=== PATIENT | male | born 1965 | race Caucasian/White ===

== ENCOUNTER 2019-08-08 12:18 | Inpatient (IN) | payer BC ==
[~2019-08-08] VITALS: Ht 188 cm; Wt 98.6 kg
[2019-08-08 12:59] LABS: BASOPHILS # (AUTO) 0.1 X10'3 (0-0.2); BASOPHILS % (AUTO) 0.4 % (0-1); EOSINOPHILS % (AUTO) 0.2 % (0-6); HEMATOCRIT 42.6 % (42.0-52.0); HEMOGLOBIN 14.6 g/dl (14.0-17.9); LYMPHOCYTES # (AUTO) 0.6 X10'3 (1.1-4.8); LYMPHOCYTES % (AUTO) 4.2 % (21-51); MEAN CORPUSCULAR HEMOGLOBIN 31.1 PG (27.0-31.0); MEAN CORPUSCULAR HGB CONC 34.2 g/dL (33.0-36.5); MEAN PLATELET VOLUME 7.5 FL (7.4-10.4); MONOCYTES # (AUTO) 1.1 X10'3 (0-0.9); MONOCYTES % (AUTO) 7.5 % (2-12); NEUTROPHILS # (AUTO) 13.1 X10'3 (1.8-7.7); NEUTROPHILS % (AUTO) 87.7 % (42-75); PLATELET COUNT 262 X10'3 (140-440); RED BLOOD COUNT 4.68 X10'6 (4.70-6.10); RED CELL DISTRIBUTION WIDTH 13.4 % (11.5-14.5)
[2019-08-08 13:25] LABS: ALANINE AMINOTRANSFERASE 32 U/L (12-78); ALBUMIN 3.7 G/DL (3.4-5.0); ALBUMIN/GLOBULIN RATIO 0.9 (1.1-1.5); ALKALINE PHOSPHATASE 90 IU/L (46-116); ANION GAP 15 (8-16); ASPARTATE AMINO TRANSFERASE 15 U/L (10-37); BILIRUBIN,TOTAL 1.5 MG/DL (0.1-1.0); BLOOD UREA NITROGEN 13 MG/DL (7-18); BUN/CREATININE RATIO 16.3 (5.4-32.0); CHLORIDE 102 MMOL/L (99-107); GLUCOSE 224 MG/DL (70-104); LIPASE < 50 U/L (73-393); POTASSIUM 4.1 MMOL/L (3.5-5.1); SODIUM 138 MMOL/L (135-145); TOTAL CARBON DIOXIDE 21.1 MMOL/L (24-32); TOTAL PROTEIN 7.9 G/DL (6.4-8.2); eGFR > 90 ML/MIN
[2019-08-08] MEDS ORDERED: vancomycin/NS 1 GM ADD-VANTAGE 250 ML IV ONE (14:00)
[2019-08-08] MEDS ORDERED: piperacillin/tazo 3.375gm/50ml 50 ML IV ONE (14:00)
[2019-08-08] MEDS ORDERED: VANCOMYCIN 1gm/H2O 200ml PB 200 ML IV ONE (14:05)
[2019-08-08] MEDS ORDERED: INSU100V9 SQ (14:16)
[2019-08-08] MEDS ORDERED: dextrose ORAL solution 15 GM/59 ML bottle PO PRN ×2 (14:25)
[2019-08-08] MEDS ORDERED: MESSAGE TO PHARMACY PO ONE (14:25)
[2019-08-08] MEDS ORDERED: ondansetron/PF 4mg/2ml inj IV PRN (14:25)
[2019-08-08] MEDS ORDERED: magnesium hydroxide 30ml (MOM) UD suspension PO PRN (14:25)
[2019-08-08] MEDS ORDERED: dextrose 50%-water 50ml dispensing syringe IV PRN ×2 (14:25)
[2019-08-08] MEDS ORDERED: potassium Cl 20 mEq SR tablet PO PRN ×2 (14:25)
[2019-08-08] MEDS ORDERED: glucagon, human recombinant 1mg kit SUBCUT PRN (14:25)
[2019-08-08] MEDS ORDERED: magnesium 4gm in 100ml NS 100 ML IV PRN (14:25)
[2019-08-08] MEDS ORDERED: magnesium 2GM in 50ml NS 50 ML IV PRN (14:25)
[2019-08-08] MEDS ORDERED: potassium CL 10mEq/100ml bag 100 ML IV PRN ×2 (14:25)
[2019-08-08] MEDS ORDERED: MULT1TAB74 PO (14:35)
[2019-08-08] MEDS ORDERED: ASPI-611 PO (14:35)
[2019-08-08] MEDS ORDERED: METF-438 PO (14:35)
[2019-08-08] MEDS ORDERED: EMPA10TA PO (14:35)
[2019-08-08] MEDS ORDERED: EMPA25TA PO (14:52)
[2019-08-08] MEDS ORDERED: METF500T20 PO (14:52)
[2019-08-08] MEDS ORDERED: TERB250T4 PO (14:56)
[2019-08-08] MEDS ORDERED: GABA-532 PO (14:56)
[2019-08-08] MEDS: normal saline 1000ml 1,000 ML IV SCH ×4 (15:07→19:24)
--- NOTE | 2019-08-08 15:16 | NUR ---
Attempted to phone report, receiving RN on lunch, Charge nurse unavailable to take report.
--- NOTE | 2019-08-08 15:30 | NUR ---
Patient in room [facility]. I have received report from ER Nurse and had the opportunity to ask questions and assume patient care.
[2019-08-08 16:00] VITALS: BP 160/82
[2019-08-08] MEDS: gabapentin 300mg capsule PO SCH ×2 (17:42→20:59)
[2019-08-08] MEDS: cefepime 1GM in D5W 50mL 50 ML IV SCH ×2 (17:50→23:43)
[2019-08-08] MEDS: mag hydrox/Alum hydrox/simeth 30ml oral suspension PO PRN (17:50)
--- NOTE | 2019-08-08 17:58 | NUR ---
Problems reprioritized. Patient report given, questions answered & plan of care reviewed with Lis GOMEZ.
[2019-08-08 18:00] VITALS: BP 146/70
--- NOTE | 2019-08-08 18:42 | NUR ---
Gave report to Yoandy GOMEZ.
--- NOTE | 2019-08-08 18:55 | NUR ---
Patient in room [facility]. I have received report from JASON Galicia and had the opportunity to ask questions and assume patient care.
[2019-08-08] MEDS: K and/or MAG REPLACEMENT MC SCH (19:03)
[2019-08-08 19:11] LABS: CLARITY,URINE CLEAR (Clear); COLOR,URINE YELLOW (Yellow); GLUCOSE, URINE 500 mg/dl (Neg); KETONES,URINE >=80 mg/dl (Neg); LEUKOCYTE ESTERASE ,URINE NEGATIVE (Neg); NITRITES, URINE NEGATIVE (Neg); OCCULT BLOOD,URINE TRACE-INTACT (Neg); PROTEIN,URINE 30 mg/dl (Neg); UROBILINOGEN,URINE 0.2 E.U/dL (0.2-1.0)
[2019-08-08 19:15] LABS: UA COLLECTION TYPE CLN CATCH MIDSTREAM
[2019-08-08 19:16] LABS: BACTERIA,URINE NONE SEEN /HPF (Neg); RBC,URINE 0-2 /HPF (0-2); SQUAMOUS EPITHELIAL CELL,UR FEW /LPF (FEW); WBC,URINE NONE SEEN /HPF (0-4)
[2019-08-08] MEDS: VANCOmycin 1250MG/NS 250ml Bag 250 ML IV SCH (19:24)
[2019-08-08] MEDS: acetaminophen 325mg tablet PO PRN (19:40)
[2019-08-08] MEDS: insulin glargine (Lantus) pen - multi-dose SQ SCH (21:00)
[2019-08-09] VITALS: BP 110/52
[2019-08-09 05:25] LABS: BASOPHILS % (AUTO) 0.4 % (0-1); EOSINOPHILS # (AUTO) 0.1 X10'3 (0-0.9); EOSINOPHILS % (AUTO) 0.5 % (0-6); HEMATOCRIT 38.8 % (42.0-52.0); HEMOGLOBIN 13.1 g/dl (14.0-17.9); LYMPHOCYTES # (AUTO) 1.3 X10'3 (1.1-4.8); LYMPHOCYTES % (AUTO) 10.7 % (21-51); MEAN CORPUSCULAR HEMOGLOBIN 30.9 PG (27.0-31.0); MEAN CORPUSCULAR HGB CONC 33.7 g/dL (33.0-36.5); MEAN CORPUSCULAR VOLUME 91.7 FL (78-98); MEAN PLATELET VOLUME 7.4 FL (7.4-10.4); MONOCYTES # (AUTO) 0.9 X10'3 (0-0.9); MONOCYTES % (AUTO) 7.6 % (2-12); NEUTROPHILS # (AUTO) 9.8 X10'3 (1.8-7.7); NEUTROPHILS % (AUTO) 80.8 % (42-75); PLATELET COUNT 253 X10'3 (140-440); RED BLOOD COUNT 4.23 X10'6 (4.70-6.10); WHITE BLOOD COUNT 12.2 X10'3 (4.5-11.0)
[2019-08-09 06:07] LABS: ALANINE AMINOTRANSFERASE 25 U/L (12-78); ALBUMIN/GLOBULIN RATIO 0.8 (1.1-1.5); ALKALINE PHOSPHATASE 80 IU/L (46-116); ANION GAP 17 (8-16); ASPARTATE AMINO TRANSFERASE 13 U/L (10-37); BILIRUBIN,TOTAL 1.2 MG/DL (0.1-1.0); BLOOD UREA NITROGEN 9 MG/DL (7-18); CALCIUM 8.2 MG/DL (8.5-10.1); CHLORIDE 105 MMOL/L (99-107); CREATININE 0.75 MG/DL (0.60-1.10); GLUCOSE 90 MG/DL (70-104); SODIUM 137 MMOL/L (135-145); TOTAL CARBON DIOXIDE 15.1 MMOL/L (24-32); TOTAL PROTEIN 6.9 G/DL (6.4-8.2); eGFR > 90 ML/MIN
--- NOTE | 2019-08-09 06:40 | NUR ---
Problems reprioritized. Patient report given, questions answered & plan of care reviewed with JASON Bateman.
--- NOTE | 2019-08-09 06:41 | NUR ---
Patient in room [facility]. I have received report from JASON Pitt and had the opportunity to ask questions and assume patient care.
[2019-08-09] MEDS: K and/or MAG REPLACEMENT MC SCH ×2 (07:14→19:19)
[2019-08-09] MEDS: mag hydrox/Alum hydrox/simeth 30ml oral suspension PO PRN ×3 (07:22→21:55)
[2019-08-09] MEDS: gabapentin 300mg capsule PO SCH ×4 (07:25→21:53)
[2019-08-09] MEDS: multivitamins, therapeutics tablet PO SCH (07:25)
[2019-08-09] MEDS: enoxaparin 40mg/0.4ml syringe SQ SCH (07:25)
[2019-08-09] MEDS: normal saline 1000ml 1,000 ML IV SCH ×2 (07:25→19:25)
[2019-08-09] MEDS: aspirin 81mg tablet.DR PO SCH (07:25)
[2019-08-09] MEDS: VANCOmycin 1250MG/NS 250ml Bag 250 ML IV SCH ×2 (07:39→19:24)
[2019-08-09 07:44] VITALS: BP 147/86
[2019-08-09] MEDS ORDERED: gadobutrol 10mmol/10ml inj. IV ONE (09:18)
--- NOTE | 2019-08-09 09:30 | NUR ---
Patient to MRI via wheelchair with x2 staff.
[2019-08-09 11:00] VITALS: BP 153/76
[2019-08-09] MEDS ORDERED: levoFLOXACIN 750MG TABLET PO SCH (11:00)
[2019-08-09] MEDS: cefepime 1GM in D5W 50mL 50 ML IV SCH ×2 (11:18→16:35)
[2019-08-09] MEDS: aspirin/acetaminophen/caffeine tablet PO PRN (13:56)
--- NOTE | 2019-08-09 16:43 | NUR ---
Problems reprioritized. Patient report given, questions answered & plan of care reviewed with JASON Deshpande.
--- NOTE | 2019-08-09 16:47 | NUR ---
Patient in room [facility]. I have received report from JASON MAO and had the opportunity to ask questions and assume patient care.
--- NOTE | 2019-08-09 17:21 | NUR ---
I agree with previous RN physical assessment.
[2019-08-09 18:00] VITALS: BP 150/77
--- NOTE | 2019-08-09 18:05 | NUR ---
Patient in room [facility]. I have received report from JASON Deshpande and had the opportunity to ask questions and assume patient care.
--- NOTE | 2019-08-09 18:13 | NUR ---
Problems reprioritized. Patient report given, questions answered & plan of care reviewed with JASON Cervantes.
[2019-08-09 18:15] VITALS: BP 107/56
[2019-08-09] MEDS: lactobacillus rhamnosus 10,000 MMU CELLS/CAPSULE PO SCH (19:25)
[2019-08-09] MEDS: insulin glargine (Lantus) pen - multi-dose SQ SCH (21:00)
[2019-08-10] VITALS: BP 122/62
[2019-08-10] MEDS: mag hydrox/Alum hydrox/simeth 30ml oral suspension PO PRN ×2 (03:25→07:59)
[2019-08-10] MEDS: normal saline 1000ml 1,000 ML IV SCH ×2 (05:33→16:39)
--- NOTE | 2019-08-10 06:24 | NUR ---
Problems reprioritized. Patient report given, questions answered & plan of care reviewed with JASON Green.
[2019-08-10] MEDS ORDERED: VANCOMYCIN LEVEL IV ONE (06:30)
[2019-08-10 07:20] VITALS: BP 164/91
[2019-08-10] MEDS: aspirin 81mg tablet.DR PO SCH (07:59)
[2019-08-10] MEDS: gabapentin 300mg capsule PO SCH ×4 (07:59→21:31)
[2019-08-10] MEDS: multivitamins, therapeutics tablet PO SCH (07:59)
[2019-08-10] MEDS: enoxaparin 40mg/0.4ml syringe SQ SCH (07:59)
[2019-08-10] MEDS: lactobacillus rhamnosus 10,000 MMU CELLS/CAPSULE PO SCH ×2 (07:59→21:30)
[2019-08-10] MEDS: K and/or MAG REPLACEMENT MC SCH ×2 (08:00→19:21)
[2019-08-10] MEDS: VANCOmycin 1250MG/NS 250ml Bag 250 ML IV SCH ×2 (08:03→16:38)
[2019-08-10 08:12] LABS: BASOPHILS # (AUTO) 0.1 X10'3 (0-0.2); EOSINOPHILS # (AUTO) 0.1 X10'3 (0-0.9); EOSINOPHILS % (AUTO) 1.1 % (0-6); HEMATOCRIT 42.5 % (42.0-52.0); HEMOGLOBIN 14.6 g/dl (14.0-17.9); LYMPHOCYTES # (AUTO) 1.1 X10'3 (1.1-4.8); LYMPHOCYTES % (AUTO) 10.9 % (21-51); MEAN CORPUSCULAR HEMOGLOBIN 31.1 PG (27.0-31.0); MEAN CORPUSCULAR HGB CONC 34.3 g/dL (33.0-36.5); MEAN CORPUSCULAR VOLUME 90.5 FL (78-98); MEAN PLATELET VOLUME 7.9 FL (7.4-10.4); MONOCYTES # (AUTO) 0.8 X10'3 (0-0.9); MONOCYTES % (AUTO) 7.5 % (2-12); NEUTROPHILS % (AUTO) 79.5 % (42-75); PLATELET COUNT 319 X10'3 (140-440); RED BLOOD COUNT 4.69 X10'6 (4.70-6.10); RED CELL DISTRIBUTION WIDTH 13.2 % (11.5-14.5); WHITE BLOOD COUNT 10.1 X10'3 (4.5-11.0)
[2019-08-10 08:21] LABS: ALANINE AMINOTRANSFERASE 24 U/L (12-78); ALBUMIN 3.1 G/DL (3.4-5.0); ALBUMIN/GLOBULIN RATIO 0.7 (1.1-1.5); ALKALINE PHOSPHATASE 90 IU/L (46-116); ANION GAP 12 (8-16); ASPARTATE AMINO TRANSFERASE 14 U/L (10-37); BILIRUBIN,TOTAL 0.8 MG/DL (0.1-1.0); BLOOD UREA NITROGEN 11 MG/DL (7-18); BUN/CREATININE RATIO 15.3 (5.4-32.0); CALCIUM 8.8 MG/DL (8.5-10.1); CHLORIDE 106 MMOL/L (99-107); CREATININE 0.72 MG/DL (0.60-1.10); GLUCOSE 137 MG/DL (70-104); MAGNESIUM 2.1 MG/DL (1.5-2.4); POTASSIUM 4.1 MMOL/L (3.5-5.1); SODIUM 135 MMOL/L (135-145); TOTAL CARBON DIOXIDE 16.7 MMOL/L (24-32); TOTAL PROTEIN 7.4 G/DL (6.4-8.2); eGFR > 90 ML/MIN
[2019-08-10] MEDS: ceFAZolin 1GM/D5W- ADD-VANTAGE 50 ML IV SCH ×4 (09:42→23:31)
[2019-08-10 11:45] VITALS: BP 138/70
[2019-08-10] MEDS ORDERED: metroNIDAZOLE 500mg tablet PO ONE (12:35)
[2019-08-10] MEDS: aspirin/acetaminophen/caffeine tablet PO PRN (13:13)
[2019-08-10] MEDS: insulin Lispro (HumaLOG) vial - multi-dose SQ SCH ×2 (13:23→19:01)
--- NOTE | 2019-08-10 18:17 | NUR ---
Received report from JASON Green. Patient is awake and alert on room air, in no apparent distress. Visitors at bedside. Call light and items of frequent use within reach. Will continue to monitor.
--- NOTE | 2019-08-10 18:29 | NUR ---
Problems reprioritized. Patient report given, questions answered & plan of care reviewed with JASON Thompson.
[2019-08-10 19:00] VITALS: BP 144/76
[2019-08-10] MEDS: metroNIDAZOLE 500mg tablet PO SCH (21:30)
[2019-08-10] MEDS: insulin glargine (Lantus) pen - multi-dose SQ SCH (21:37)
[2019-08-11] VITALS: BP 108/54
[2019-08-11] MEDS: VANCOmycin 1250MG/NS 250ml Bag 250 ML IV SCH ×2 (00:53→08:41)
[2019-08-11] MEDS: aspirin/acetaminophen/caffeine tablet PO PRN (04:13)
[2019-08-11] MEDS: normal saline 1000ml 1,000 ML IV SCH ×3 (04:14→17:22)
--- NOTE | 2019-08-11 06:09 | NUR ---
Problems reprioritized. Patient report given, questions answered & plan of care reviewed with JASON Green.
[2019-08-11 07:10] VITALS: BP 144/69
[2019-08-11] MEDS ORDERED: VANCOMYCIN LEVEL IV ONE (07:30)
[2019-08-11] MEDS: gabapentin 300mg capsule PO SCH ×4 (07:47→21:17)
[2019-08-11] MEDS: multivitamins, therapeutics tablet PO SCH (07:47)
[2019-08-11] MEDS: metroNIDAZOLE 500mg tablet PO SCH ×2 (07:48→19:39)
[2019-08-11] MEDS: enoxaparin 40mg/0.4ml syringe SQ SCH (07:48)
[2019-08-11] MEDS: ceFAZolin 1GM/D5W- ADD-VANTAGE 50 ML IV SCH ×3 (07:48→23:56)
[2019-08-11] MEDS: aspirin 81mg tablet.DR PO SCH (07:48)
[2019-08-11] MEDS: lactobacillus rhamnosus 10,000 MMU CELLS/CAPSULE PO SCH ×2 (07:48→19:39)
[2019-08-11] MEDS: K and/or MAG REPLACEMENT MC SCH ×2 (07:52→20:00)
[2019-08-11] MEDS: insulin Lispro (HumaLOG) vial - multi-dose SQ SCH ×3 (08:45→19:01)
[2019-08-11 08:56] LABS: BASOPHILS # (AUTO) 0.1 X10'3 (0-0.2); BASOPHILS % (AUTO) 0.8 % (0-1); EOSINOPHILS # (AUTO) 0.2 X10'3 (0-0.9); EOSINOPHILS % (AUTO) 2.1 % (0-6); HEMATOCRIT 44.1 % (42.0-52.0); HEMOGLOBIN 15.2 g/dl (14.0-17.9); LYMPHOCYTES # (AUTO) 1.1 X10'3 (1.1-4.8); LYMPHOCYTES % (AUTO) 12.7 % (21-51); MEAN CORPUSCULAR HEMOGLOBIN 31.1 PG (27.0-31.0); MEAN CORPUSCULAR HGB CONC 34.4 g/dL (33.0-36.5); MEAN CORPUSCULAR VOLUME 90.3 FL (78-98); MEAN PLATELET VOLUME 7.6 FL (7.4-10.4); MONOCYTES # (AUTO) 0.6 X10'3 (0-0.9); MONOCYTES % (AUTO) 7.6 % (2-12); NEUTROPHILS # (AUTO) 6.5 X10'3 (1.8-7.7); NEUTROPHILS % (AUTO) 76.8 % (42-75); PLATELET COUNT 365 X10'3 (140-440); RED BLOOD COUNT 4.88 X10'6 (4.70-6.10); RED CELL DISTRIBUTION WIDTH 13.2 % (11.5-14.5); WHITE BLOOD COUNT 8.4 X10'3 (4.5-11.0)
[2019-08-11 09:04] LABS: ALANINE AMINOTRANSFERASE 28 U/L (12-78); ALBUMIN 3.3 G/DL (3.4-5.0); ALBUMIN/GLOBULIN RATIO 0.7 (1.1-1.5); ALKALINE PHOSPHATASE 99 IU/L (46-116); ANION GAP 11 (8-16); ASPARTATE AMINO TRANSFERASE 17 U/L (10-37); BILIRUBIN,TOTAL 0.6 MG/DL (0.1-1.0); BLOOD UREA NITROGEN 10 MG/DL (7-18); BUN/CREATININE RATIO 16.4 (5.4-32.0); CHLORIDE 105 MMOL/L (99-107); CREATININE 0.61 MG/DL (0.60-1.10); GLUCOSE 194 MG/DL (70-104); POTASSIUM 3.8 MMOL/L (3.5-5.1); SODIUM 138 MMOL/L (135-145); TOTAL CARBON DIOXIDE 22.2 MMOL/L (24-32); TOTAL PROTEIN 7.8 G/DL (6.4-8.2); eGFR > 90 ML/MIN
[2019-08-11 09:07] LABS: MAGNESIUM 1.9 MG/DL (1.5-2.4); VANCOMYCIN,TROUGH 11.5 UG/ML (6.0-14.0)
[2019-08-11 12:09] VITALS: BP 159/85
[2019-08-11 20:00] VITALS: BP 166/88
[2019-08-11] MEDS: insulin glargine (Lantus) pen - multi-dose SQ SCH (21:16)
[2019-08-12] VITALS: BP 155/82
[2019-08-12] MEDS: acetaminophen 325mg tablet PO PRN (01:11)
--- NOTE | 2019-08-12 02:30 | NUR ---
Patient in room [facility]. I have received report from Ninoska GOMEZ and had the opportunity to ask questions and assume patient care.
[2019-08-12] MEDS: normal saline 1000ml 1,000 ML IV SCH (05:30)
--- NOTE | 2019-08-12 06:42 | NUR ---
Patient in room [facility]. I have received report from Marcela RN and Adri RN and had the opportunity to ask questions and assume patient care.
--- NOTE | 2019-08-12 06:52 | NUR ---
Problems reprioritized. Patient report given, questions answered & plan of care reviewed with Delphine GOMEZ.
--- NOTE | 2019-08-12 06:53 | NUR ---
Problems reprioritized. Patient report given, questions answered & plan of care reviewed with JASON Akers.
--- NOTE | 2019-08-12 06:53 | NUR ---
RFA IV infiltrated, pt arm edemetous. Removed IV, restarted new on LFA
[2019-08-12 07:00] VITALS: BP 148/83
[2019-08-12] MEDS: multivitamins, therapeutics tablet PO SCH (07:47)
[2019-08-12] MEDS: gabapentin 300mg capsule PO SCH (07:47)
[2019-08-12] MEDS: metroNIDAZOLE 500mg tablet PO SCH (07:47)
[2019-08-12] MEDS: ceFAZolin 1GM/D5W- ADD-VANTAGE 50 ML IV SCH (07:47)
[2019-08-12] MEDS: aspirin 81mg tablet.DR PO SCH (07:47)
[2019-08-12] MEDS: lactobacillus rhamnosus 10,000 MMU CELLS/CAPSULE PO SCH (07:47)
[2019-08-12] MEDS: enoxaparin 40mg/0.4ml syringe SQ SCH (07:48)
[2019-08-12] MEDS: insulin Lispro (HumaLOG) vial - multi-dose SQ SCH (08:36)
[2019-08-12] MEDS ORDERED: LIDOcaine 4% (40 mg/ml) topical solution 50ml TP ONE (09:25)
[2019-08-12] MEDS ORDERED: LEVO500T2 PO (10:21)
[2019-08-12 11:00] VITALS: BP 163/91
[2019-08-12] MEDS ORDERED: VANCOMYCIN LEVEL IV ONE (15:30)
--- NOTE | 2019-08-12 15:46 | NUR ---
PATIENT STABLE AND APPROPRIATE FOR DISCHARGE, IV TAKEN OUT, EDUCATION GIVEN, ALL BELONGINGS SENT WITH PATIENT, MEDS E-SCRIPTED TO PREFERRED PHARMACY, PATIENT TAKEN TO LOBBY IN WHEEL CHAIR TO AN AWAITING CAR WHERE WILL TAKE HOME
== END 2019-08-12 12:47 | disposition home or self-care (01) | DRG 854 ==
LOC: ER 12:20 → ED HOLD 14:23 → SUR 3N 15:40
PROVIDERS: ADMIT Family Medicine; ATTEND Family Medicine
PROC: 0JBR0ZZ Excision of Left Foot Subcutaneous Tissue and Fascia, Open Approach (ICD-10-PCS; principal; 2019-08-12)
DX: A41.9 Sepsis, unspecified organism (principal); L03.116 Cellulitis of left lower limb; L97.425 Non-pressure chronic ulcer of left heel and midfoot with muscle involvement without evidence of necrosis; E11.621 Type 2 diabetes mellitus with foot ulcer; E11.42 Type 2 diabetes mellitus with diabetic polyneuropathy; E78.5 Hyperlipidemia, unspecified; B19.20 Unspecified viral hepatitis C without hepatic coma; L84 Corns and callosities; Z79.4 Long term (current) use of insulin; Z83.3 Family history of diabetes mellitus; Z79.899 Other long term (current) drug therapy; Z79.82 Long term (current) use of aspirin
CPT/HCPCS: 36415; 73630; 73723; 80053; 80202; 81001; 82948; 83036; 83605; 83690; 83735; 85025; 87040; 87070; 87075; 87077; 87081; 87102; 87186; 97116; 97161; 97530; 99285; A9585; G0378; J0690; J0692; J1650; J1815; J2543; J3370; J3490; J7030